=== PATIENT | male | born 1965 | race Caucasian/White ===

== ENCOUNTER 2018-12-27 07:45 | Day surgery (SDC) | payer OTHER ==
[~2018-12-27] VITALS: Ht 185.4 cm; Wt 97.4 kg
[2018-12-27 09:12] VITALS: Ht 185.4 cm; Wt 97.4 kg
[2018-12-27] MEDS ORDERED: NO ACTIVE MEDS (09:16)
[2018-12-27 10:04] VITALS: BP 117/76; PULSE 76; RESP 16
[2018-12-27] MEDS ORDERED: LIDOCAINE 4% SOLUTION 50 ML BTL ONE (10:13)
[2018-12-27] MEDS ORDERED: DIPHENHYDRAMINE 50 MG INJ ONE (10:46)
[2018-12-27] MEDS ORDERED: MIDAZOLAM 1 MG/ML 2 ML INJ ONE ×3 (11:05)
[2018-12-27] MEDS ORDERED: FENTAnyl 50 MCG/ML VIAL ONE ×2 (11:06)
[2018-12-27 11:23] VITALS: BP 115/73; PULSE 70; RESP 16
== END 2018-12-27 13:10 | disposition home or self-care (01) ==
LOC: GIL 07:45
PROVIDERS: ATTEND Internal Medicine Gastroenterology
DX: D12.3 Benign neoplasm of transverse colon (principal); K64.8 Other hemorrhoids; K21.0 Gastro-esophageal reflux disease with esophagitis
CPT/HCPCS: 43239; 45380; 88305; 88313; J1200; J2250; J3010; Z7610